=== PATIENT | female | born 1955 | race Caucasian/White ===

== ENCOUNTER → 2017-05-14 | Outpatient (CLI) | payer BC | END | disposition home or self-care (01) | LOC: GMATM 17:51 | PROVIDERS: ATTEND Nurse Practitioner Family | DX: R53.83 Other fatigue (principal) ==

== ENCOUNTER → 2017-06-16 | Outpatient (CLI) | payer BC | LOC: GMAM 17:49 | PROVIDERS: ATTEND Family Medicine | DX: R41.82 Altered mental status, unspecified (principal) ==

== ENCOUNTER → 2017-06-18 | Outpatient (CLI) | payer BC ==
--- NOTE | 2017-06-18 13:17 | MRI ---
EXAM DESCRIPTION: Brain w/oContrast: MRI. CLINICAL HISTORY: MEMORY LOSS COMPARISON: CT scan of the head 05/19/2008. TECHNIQUE: Multiplanar, high-field MRI unit, multiple diffusion sequences, multiple conventional sequences without contrast. FINDINGS: Normal FLAIR and T2-weighted signal in the periventricular white matter and trejo-white matter junctions of the cerebral hemispheres. . Normal signal bilateral basal ganglia. No hemorrhage, no cerebral edema, no mass-effect. Normal signal in the brainstem and cerebellar hemispheres. No hemorrhage, no cerebral edema, no mass-effect. Concordance of the diffusion and non-diffusion sequences with no diffusion restriction. Cortical sulci, ventricles, and other CSF spaces, and the subdural spaces are age appropriate. Physiologic in configuration. No effacement or displacement. No midline shift. No extra-axial hemorrhage. Normal flow signal void in the major vessels of the [place], and the venous sinuses. IACs are symmetric bilaterally. Normal signal in the bilateral mastoid air cells. No mass effect in the bilateral cerebellopontine angles. Pituitary gland occupies most of the sella. Base of the cerebellar tonsils is at the level of the foramen magnum. Minimal mucoperiosteal thickening in paranasal sinuses. The bony calvarium is intact. IMPRESSION: 1. No hemorrhage, mass effect, or midline shift in the noncontrast brain MRI scan. Physiologic appearance of subdural and CSF spaces. 2. Normal noncontrast MRI diffusion scan with no evidence of acute or subacute ischemia or infarction. Electronically signed by: Yan Rosado MD 06/18/2017 1:16 PM [facility]
== END ==
LOC: MRI 11:28
PROVIDERS: ATTEND Family Medicine
DX: R41.82 Altered mental status, unspecified (principal); I67.9 Cerebrovascular disease, unspecified; J44.9 Chronic obstructive pulmonary disease, unspecified; H54.7 Unspecified visual loss

== ENCOUNTER → 2020-01-03 | Outpatient (CLI) | payer BC, MEDICARE | LOC: GMAM 10:23 | PROVIDERS: ATTEND Family Medicine | DX: M79.672 Pain in left foot (principal) ==

== ENCOUNTER 2020-04-21 13:42 | Emergency (ER) | payer MEDICARE, OTHER ==
--- NOTE | 2020-04-21 14:21 | ED.PDOC ---
History of Present Illness - General Chief Complaint: Cardiovascular Problem Stated Complaint: Chest pressure, neck tight, nausea, dizzy, fatigue Time Seen by Provider: 04/21/20 14:06 Source: patient, RN notes reviewed, Vital Signs reviewed Exam Limitations: no limitations - History of Present Illness Initial Comments: The patient is a 64 year old with past medical history of COPD who presents to the ED complaining of chest pain. She states that she has actually been having intermittent chest pain over the past several months. She notices the pain any time she gets excited, has stress, or "when I overdo it." She describes the pain as "not really painful, but like a discomfort." She states that "it feels like my heart beats harder and there is a balloon inflating inside my chest." The pain lasts 10-15 minutes and resolves spontaneously. No association with food or position and she is unable to identify any specific modifying factors. She states that she had a "really bad episode" prior to arrival. She denies any prior cardiac history but notes that her father had a heart attack when he was in his late 70s. No other complaints at this time. Allergies/Adverse Reactions: Allergies NO KNOWN ALLERGY Allergy (Verified 04/21/20 13:59) Home Medications: Ambulatory Orders Aspirin [Larry Low Dose] 81 mg PO DAILY 12/01/15 Calcium 600 mg PO DAILY 12/01/15 Acetaminophen W/ Codeine [Tylenol W/ CODEINE #3] 1 ea PO Q4HR PRN #20 ea 04/21/20 Ondansetron Tab [Zofran Tab] 4 mg PO Q4HR #12 tab 04/21/20 Review of Systems - Review of Systems Constitutional: States: malaise. Denies: chills, fever EENTM: Denies: throat pain, throat swelling Respiratory: Denies: cough, short of breath Cardiology: States: chest pain, palpitations. Denies: edema, syncope Gastrointestinal/Abdominal: Denies: abdominal pain, diarrhea, nausea, vomiting Genitourinary: States: no symptoms reported Musculoskeletal: States: no symptoms reported Skin: States: no symptoms reported Neurological: States: no symptoms reported Endocrine: States: no symptoms reported Hematologic/Lymphatic: States: no symptoms reported All other Systems: Reviewed and Negative Past Medical History (General) - Patient Medical History Hx Seizures: No Hx Stroke: No Hx Dementia: No Hx Asthma: No Hx of COPD: Yes Hx Cardiac Disorders: No Hx Congestive Heart Failure: No Hx Pacemaker: No Hx Hypertension: No Hx Diabetes: No Hx Gastroesophageal Reflux: No Hx Renal Disease: No Hx Cancer: No Surgical History: tonsillectomy, Hysterectomy - Vaccination History Hx Tetanus, Diphtheria Vaccination: No Hx Influenza Vaccination: No Hx Pneumococcal Vaccination: Yes - Social History Hx Tobacco Use: Yes Hx Alcohol Use: No Hx Substance Use: No Hx Substance Use Treatment: No Hx Depression: No - Female History Patient is a Female of Child Bearing Age (10 -59 yrs old): Yes Patient : No - Hyst Family Medical History - Family History Mother Family History: Unknown Living Status: Unknown Physical Exam - Physical Exam General Appearance: Alert, Comfortable, No apparent distress, Well Developed, Well Groomed, Well Hydrated, Well Nourished Eyes, Ears, Nose, Throat Exam: normal ENT inspection Neck: non-tender, full range of motion, supple, normal inspection Respiratory: lungs clear, normal breath sounds, no respiratory distress, no accessory muscle use Cardiovascular/Chest: normal peripheral pulses, regular rate, rhythm, no edema, no gallop, no JVD, no murmur Gastrointestinal/Abdominal: non tender, soft Extremity: normal range of motion, non-tender, normal inspection, no pedal edema Neurologic: no motor/sensory deficits, alert, normal mood/affect, oriented x 3 Skin Exam: normal color, warm/dry Progress - Progress Progress: 04/21/20 17:11 Patient reassessed, workup as above. Troponin, CK-MB are negative. No evidence for ACS. Pain resolved in ED, no events on telemetry. HEART < 4. Will continue outpatient symptomatic management and she will follow up with her PCP for outpatient stress testing. Home care instructions and return indications reviewed. - Results/Orders Results/Orders: 04/21/20 15:00 EKG STAT Laboratory Results - last 24 hr 04/21/20 04/21/20 04/21/20 14:24 16:43 16:43 WBC 7.5 RBC 4.42 Hgb 13.7 Hct 41.3 MCV 93.4 MCH 30.9 MCHC 33.0 RDW 14.1 Plt Count 270 MPV 9.4 Absolute Neuts (auto) 4.30 Absolute Lymphs (auto) 2.20 Absolute Monos (auto) 0.50 Absolute Eos (auto) 0.30 Absolute Basos (auto) 0.10 Neutrophils % 57.9 Lymphocytes % 29.8 Monocytes % 6.8 Eosinophils % 3.8 Basophils % 1.7 PT 9.6 INR < 1.00 PTT (SP) 22.5 Sodium 140 Potassium 3.9 Chloride 102 Carbon Dioxide 27 Anion Gap 14.9 BUN 13 Creatinine 0.68 BUN/Creatinine Ratio 19.1 Random Glucose 92 Serum Osmolality 279.2 Calcium 9.0 Magnesium 1.9 Creatine Kinase 59 CK-MB (CK-2) 7.0 H* 1.7 CK-MB (CK-2) % Not Reportable Troponin I 0.04 < 0.02 MDM: 64F present with chest pain for over a month, worse today. Workup as above. No acute changes on EKG, troponin negative x 2. No events on telemetry and pain is controlled in the ED. No increased work of breathing or significant wheezing. Abdominal exam is benign. Doubt ACS or pulmonary embolism. HEART < 4. Will continue outpatient symptomatic management and she will follow up with her PCP for outpatient stress testing. Home care instructions and return indications reviewed. - EKG/XRAY/CT Comments: 1343 NSR at 72, normal axis, normal intervals, no STEMI Departure - Departure Clinical Impression: Atypical chest pain Time of Disposition: 17:12 Disposition: Discharge to Home or Self Care Departure Forms: ED Discharge - Pt. Copy, Patient Portal Self Enrollment Instructions: DI for Chest Pain, Chest Pain (DC) Diet: resume usual diet Activity: increase activity as tolerated Referrals: Troy Hamm MD [Primary Care Provider] - 1-2 Weeks Prescriptions: Acetaminophen W/ Codeine [Tylenol W/ CODEINE #3] 1 ea PO Q4HR PRN #20 ea PRN Reason: Pain Ondansetron Tab [Zofran Tab] 4 mg PO Q4HR #12 tab Home Medications: Ambulatory Orders Aspirin [Larry Low Dose] 81 mg PO DAILY 12/01/15 Calcium 600 mg PO DAILY 12/01/15 Acetaminophen W/ Codeine [Tylenol W/ CODEINE #3] 1 ea PO Q4HR PRN #20 ea 04/21/20 Ondansetron Tab [Zofran Tab] 4 mg PO Q4HR #12 tab 04/21/20
--- NOTE | 2020-04-21 14:31 | RAD ---
EXAMINATION: Chest,1 View. HISTORY: 64 years Female. chest pain. . TECHNIQUE: XR CHEST 1 VIEW COMPARISON: 09/01/2018 two view chest. FINDINGS: There is no pulmonary consolidation. No evidence of pneumothorax. No radiographically visible pleural effusion. Cardiac silhouette size is normal without vascular congestion. No visible acute displaced fracture in the regional skeleton. IMPRESSION: No acute cardiopulmonary disease in the visualized chest. Electronically signed by: Chuy Carter MD 04/21/2020 2:30 PM [facility]
[2020-04-21 18:33] VITALS: BP 143/77; TEMP 97.8; O2SAT 92
== END 2020-04-21 17:35 | disposition home or self-care (01) ==
LOC: ER 13:42
DX: R07.89 Other chest pain (principal); J44.9 Chronic obstructive pulmonary disease, unspecified; R00.2 Palpitations; Z87.891 Personal history of nicotine dependence; Z79.82 Long term (current) use of aspirin